=== PATIENT | female | born 1940 | race Asian ===

== ENCOUNTER 2023-05-22 14:26 | Emergency (ER) | payer OTHER ==
[~2023-05-22] VITALS: Ht 152.4 cm; Wt 47.6 kg
[2023-05-22 14:29] VITALS: BP 131/47; PULSE 76; RESP 18; TEMP 98.4; O2SAT 94
--- NOTE | 2023-05-22 14:38 | NUR ---
chest pain via medic [facility] to bed 9
--- NOTE | 2023-05-22 14:53 | NUR ---
bib medics from home c/o substernal non rad chest tightness that last for 35 min in duration, the pain had subsided upon medic arrival and now is 0/10 no cp, vss good palp pulses a/o x4
[2023-05-22 15:05] LABS: BASOPHILS % (AUTO) 0.8 % (0.0-2.0); EOSINOPHILS # (AUTO) 0.1 K/uL (0-0.4); EOSINOPHILS % (AUTO) 1.1 % (0.0-4.0); HEMATOCRIT 34.3 % (36-48); HEMOGLOBIN 11.5 g/dL (12.0-16.0); LYMPHOCYTES # (AUTO) 1.2 K/uL (2.5-16.5); LYMPHOCYTES % (AUTO) 22.9 % (20.5-51.1); MEAN CORPUSCULAR HEMOGLOBIN 31 pg (27-31); MEAN CORPUSCULAR HGB CONC 34 g/dL (33-37); MONOCYTES # (AUTO) 0.3 K/uL (0.8-1.0); NEUTROPHILS # (AUTO) 3.8 K/uL (1.8-7.7); NEUTROPHILS % (AUTO) 69.2 % (42.2-75.2); PLATELET COUNT (AUTO) 267 K/uL (140-450); RED BLOOD CELL COUNT(AUTO) 3.69 MIL/uL (4.20-5.40); WHITE BLOOD COUNT (AUTO) 5.4 K/uL (4.8-10.8)
[2023-05-22 15:26] LABS: ALBUMIN 3.2 g/dL (3.4-5.0); ANION GAP 12.7 (8-16); ASPARTATE AMINOTRANSFERASE 14 U/L (15-37); CARBON DIOXIDE 25.4 mmol/L (21-32); CHLORIDE 102 mmol/L (98-107); CREATININE 0.7 mg/dL (0.6-1.3); GLUCOSE 220 mg/dL (74-106); POTASSIUM 4.1 mmol/L (3.5-5.1); SODIUM SERUM 136 mmol/L (136-145); TOTAL BILIRUBIN 0.4 mg/dL (0.0-1.0); UREA NITROGEN, BLOOD 17 mg/dL (7-18)
[2023-05-22 15:32] LABS: D-DIMER 144 ng/ml (0-400)
[2023-05-22 15:35] LABS: FIBRINOGEN 253 mg/dL (200-400)
[2023-05-22 15:38] LABS: AMYLASE 41 U/L (25-115); LIPASE 97 U/L (73-393)
[2023-05-22] MEDS ORDERED: ASPIRIN 325 MG TABEC PO STA (15:40)
--- NOTE | 2023-05-22 17:36 | NUR ---
Per patient, takes no medication. Med rec complete.
--- NOTE | 2023-05-22 17:40 | NUR ---
Patient was assisted to the restroom.
--- NOTE | 2023-05-22 19:21 | NUR ---
Report given to JACQUELIN Cook for transfer of care.
--- NOTE | 2023-05-22 19:25 | NUR ---
PT IS RESTING ON THE BED. NO PAIN TREPORTED.
--- NOTE | 2023-05-22 22:03 | NUR ---
CALLED FOR REPORT TO [facility] TO LAVERNE RPOER.
--- NOTE | 2023-05-22 23:21 | NUR ---
Patient to be transferred to [facility]. Is being transferred due to CHEST PAIN. Receiving facility has accepting physician and available space. ER physician has signed transfer form. Patient or responsible libertarian has agreed to transfer and signed form. Patient belongings inventoried and will be sent with patient. Copy of nursing notes, lab reports, EKG, Physicians Orders and X-rays to be sent with patient. Report called to LAVERNE at receiving facility. [facility] ambulance service has been called for transfer. ETA is 40 MINUTES
[2023-05-22 23:22] VITALS: BP 119/40; PULSE 70; RESP 20; TEMP 98; O2SAT 98
[2023-05-23] MEDS ORDERED: ASPIRIN 325 MG TABEC PO SCH (09:00)
== END 2023-05-22 23:21 | disposition short-term general hospital (02) ==
LOC: MED 14:26
DX: I20.0 Unstable angina (principal); Z20.822 Contact with and (suspected) exposure to COVID-19; G47.00 Insomnia, unspecified; E11.9 Type 2 diabetes mellitus without complications; Z88.2 Allergy status to sulfonamides; Z79.4 Long term (current) use of insulin; Z79.899 Other long term (current) drug therapy
CPT/HCPCS: 36415; 71045; 80053; 82150; 83690; 84484; 85025; 85379; 85384; 86886; 86900; 86901; 87426; 93005; 99285; Q0092